=== PATIENT | female | born 1935 | race African-American/Black ===

== ENCOUNTER → 2017-07-13 | Outpatient (CLI) | payer MEDICARE, MEDICAID ==
[~2017-07-13] MED LIST: AMLO10TA2 PO; ASPI-183 PO; LISI10TA3 PO
[2017-07-13 11:30] LABS: AUTOMATED NEUTROPHIL # 4.1 TH/MM3 (1.8-7.7); BASOPHIL # 0.1 TH/MM3 (0-0.2); BASOPHIL % 1.1 % (0.0-2.0); EOSINOPHIL # 0.1 TH/MM3 (0-0.4); EOSINOPHIL % 1.9 % (0.0-4.0); HEMATOCRIT 39.5 % (35.0-46.0); HEMO FLAGS DIFF FINAL; LYMPH % 31.2 % (9.0-44.0); LYMPHOCYTE # 2.3 TH/MM3 (1.0-4.8); MEAN CELL VOLUME 91.3 FL (80.0-100.0); MEAN CORPUSCULAR HEMOGLOBIN 32.5 PG (27.0-34.0); MEAN CORPUSCULAR HGB CONC 35.6 % (32.0-36.0); MONO % 10.4 % (0.0-8.0); NEUT % 55.4 % (16.0-70.0); PLATELET COUNT 333 TH/MM3 (150-450); RED BLOOD COUNT 4.33 MIL/MM3 (4.00-5.30); RED CELL DISTRIBUTION WIDTH 13.8 % (11.6-17.2); WHITE BLOOD COUNT 7.4 TH/MM3 (4.0-11.0)
[2017-07-13 11:37] LABS: APTT (PATIENT) 24.1 SEC (24.3-30.1); PROTHROMBIN TIME - PATIENT 10.2 SEC (9.8-11.6)
[2017-07-13 11:51] LABS: ALT (GPT) 24 U/L (10-53); ANION GAP 6 MEQ/L (5-15); AST (GOT) 14 U/L (15-37); BICARBONATE 29.1 MEQ/L (21.0-32.0); BLOOD UREA NITROGEN 18 MG/DL (7-18); CHLORIDE 105 MEQ/L (98-107); GLOMERULAR FILTRATION RATE 68 ML/MIN (>89); GLUCOSE,FASTING 122 MG/DL (74-99); POTASSIUM 4.5 MEQ/L (3.5-5.1); SODIUM (NA) 140 MEQ/L (136-145)
[2017-07-13 11:54] LABS: ALKALINE PHOSPHATASE 167 U/L (45-117); TOTAL BILIRUBIN ADULT 0.4 MG/DL (0.2-1.0)
--- NOTE | 2017-07-15 13:21 | EKG ---
Date Performed: 07/13/2017 Time Performed: 10:22:00 PTAGE: 82 years EKG: Sinus rhythm Low QRS voltage in precordial leads Nonspecific T-wave abnormality NO PREVIOUS TRACING DOCTOR: Valente Borja Interpretating Date/Time 07/15/2017 13:21:32
== END ==
LOC: CPRE 09:59
PROVIDERS: ATTEND Obstetrics & Gynecology Gynecologic Oncology
DX: Z01.812 Encounter for preprocedural laboratory examination (principal); Z01.810 Encounter for preprocedural cardiovascular examination; C56.9 Malignant neoplasm of unspecified ovary
CPT/HCPCS: 36415; 80053; 85025; 85610; 85730; 86304; 93005

== ENCOUNTER 2017-07-26 07:50 | Inpatient (IN) | payer MEDICARE, OTHER ==
[~2017-07-26] VITALS: Ht 157.5 cm; Wt 68.9 kg
[2017-07-26] MEDS ORDERED: HEPARIN SODIUM - SQ 10,000 UNITS/ML VIAL ONE (08:58)
[2017-07-26] MEDS ORDERED: ceFAZolin INJ 1,000 MG VIAL ONE ×2 (08:58→17:17)
[2017-07-26] MEDS ORDERED: SODIUM CHLORIDE 0.9% INJ 100 ML ONE (08:59)
[2017-07-26] MEDS ORDERED: HEPARIN SODIUM - SQ 10,000 UNITS/ML VIAL SQ SCH (09:30)
[2017-07-26] MEDS ORDERED: CHLORHEXIDINE GLUCONATE 2 % 1 PACK (2 CLOTHS) TOPICAL PRN (09:45)
[2017-07-26] MEDS ORDERED: LACTATED RINGER'S 1000 ML IV PRN (09:45)
[2017-07-26] MEDS ORDERED: METOPROLOL TARTRATE 25 MG TAB PO PRN (09:45)
[2017-07-26] MEDS ORDERED: INSULIN HUMAN REGULAR 1,000 UNITS/10 ML VIAL SQ PRN (09:45)
[2017-07-26] MEDS ORDERED: ceFAZolin 1,000 MG/NS 100 ML IV SCH ×2 (09:45)
[2017-07-26] MEDS ORDERED: SODIUM CHLORID 0.9% 500 ML IV PRN (09:45)
[2017-07-26] MEDS ORDERED: POVIDONE IODINE 5% (ANTISEPSIS KIT) 4 APPLICATIONS EACH NARE PRN (09:45)
[2017-07-26] MEDS ORDERED: DEXAMETHASONE SOD PHOS 4 MG/ML VIAL IV ONE (12:00)
[2017-07-26] MEDS ORDERED: LABETALOL HCL 100 MG/20 ML VIAL IV ONE (12:00)
[2017-07-26] MEDS ORDERED: SODIUM CHLORIDE 0.9% 20 ML VIAL IV ONE (12:00)
[2017-07-26] MEDS ORDERED: ROCURONIUM INJ 50 MG/5 ML SYRINGE IV PUSH ONE (12:00)
[2017-07-26] MEDS ORDERED: ONDANSETRON HCL 4 MG/2 ML VIAL IV PUSH ONE (12:00)
[2017-07-26] MEDS ORDERED: VECURONIUM BROMIDE 20 MG VIAL IV ONE (12:00)
[2017-07-26] MEDS ORDERED: hydrALAZINE HCL 20 MG/ML VIAL IV ONE (12:00)
[2017-07-26] MEDS ORDERED: LIDOCAINE HCL 1% PF 5 ML SYRINGE OTHER ONE (12:00)
[2017-07-26] MEDS ORDERED: PROPOFOL 200 MG/20 ML AMP IV ONE (12:00)
[2017-07-26] MEDS ORDERED: LIDOCAINE 1%/EPINEPHrine 1:100,000 SOLN 50 ML VIAL ONE (13:43)
[2017-07-26] MEDS ORDERED: SUGAMMADEX SODIUM 200 MG/2 ML VIAL IV PUSH ONE (16:09)
[2017-07-26] MEDS ORDERED: oxyCODONE/ACETAMINOPHEN 5 MG/325 MG TAB PO PRN ×2 (17:30)
[2017-07-26] MEDS ORDERED: ONDANSETRON HCL 4 MG/2 ML VIAL IVP PRN (17:30)
[2017-07-26] MEDS ORDERED: LORazepam 0.5 MG TAB PO PRN (17:30)
[2017-07-26] MEDS ORDERED: SODIUM CHLORIDE 0.9% FLUSH 10 ML FLUSH IV FLUSH PRN (17:30)
[2017-07-26] MEDS ORDERED: DO NOT ADM ANY ANTICOAGULANT DRUGS PRN (17:47)
[2017-07-26] MEDS: D5-1/2 NS + KCL 20 MEQ INJ 1,000 ML IV SCH (18:15)
[2017-07-26 20:05] VITALS: BP 148/71; PULSE 98; RESP 18; TEMP 96.4; O2SAT 98
[2017-07-26] MEDS: KETOROLAC TROMETHAMINE 30 MG/ML (IVP) VIAL IVP SCH (20:57)
[2017-07-26] MEDS: SODIUM CHLORIDE 0.9% FLUSH 10 ML FLUSH IV FLUSH SCH (20:57)
[2017-07-26 22:22] VITALS: PULSE 100
[2017-07-27 00:55] VITALS: BP 164/81; PULSE 110; RESP 18; TEMP 99.4; O2SAT 99
[2017-07-27] MEDS: KETOROLAC TROMETHAMINE 30 MG/ML (IVP) VIAL IVP SCH ×2 (02:50→09:25)
[2017-07-27 05:43] VITALS: BP 149/75; PULSE 97; RESP 18; TEMP 98.8; O2SAT 99
[2017-07-27] MEDS: D5-1/2 NS + KCL 20 MEQ INJ 1,000 ML IV SCH (05:49)
[2017-07-27 06:22] LABS: AUTOMATED NEUTROPHIL # 12.2 TH/MM3 (1.8-7.7); BASOPHIL % 0.1 % (0.0-2.0); HEMATOCRIT 39.1 % (35.0-46.0); LYMPH % 8.4 % (9.0-44.0); LYMPHOCYTE # 1.2 TH/MM3 (1.0-4.8); MEAN CELL VOLUME 90.4 FL (80.0-100.0); MEAN CORPUSCULAR HEMOGLOBIN 30.1 PG (27.0-34.0); MEAN CORPUSCULAR HGB CONC 33.3 % (32.0-36.0); MEAN PLATELET VOLUME 8.1 FL (7.0-11.0); MONO % 7.4 % (0.0-8.0); MONOCYTE # 1.1 TH/MM3 (0-0.9); NEUT % 84.1 % (16.0-70.0); PLATELET COUNT 311 TH/MM3 (150-450); RED BLOOD COUNT 4.32 MIL/MM3 (4.00-5.30); RED CELL DISTRIBUTION WIDTH 13.5 % (11.6-17.2); WHITE BLOOD COUNT 14.5 TH/MM3 (4.0-11.0)
[2017-07-27] MEDS ORDERED: OXYC1TAB63 PO (06:51)
[2017-07-27 06:54] LABS: BICARBONATE 24.9 MEQ/L (21.0-32.0); CALCIUM 8.8 MG/DL (8.5-10.1); CREATININE 1.08 MG/DL (0.50-1.00)
[2017-07-27] MEDS ORDERED: LISINOPRIL 10 MG TAB PO SCH (09:00)
[2017-07-27 09:20] VITALS: BP 167/77; PULSE 90; RESP 18; TEMP 98.4; O2SAT 98
[2017-07-27] MEDS: SODIUM CHLORIDE 0.9% FLUSH 10 ML FLUSH IV FLUSH SCH (09:25)
--- NOTE | 2017-07-28 23:18 | MP ---
cc: JUNI HUFFMAN MD,FANTA JOSHIEDNA DATE OF SURGERY 07/26/17 PREOPERATIVE DIAGNOSIS Uterine papillary serous carcinoma. POSTOPERATIVE DIAGNOSIS 1. Uterine papillary serous carcinoma 2. Pelvic adhesions. PROCEDURE Robotic-assisted laparoscopic hysterectomy, bilateral salpingo-oophorectomy, bilateral pelvic lymph node dissection with biopsies, omentectomy, peritoneal biopsies, lysis of adhesions. SURGEON Emily Nunn MD STILL OPERATOR GIN [place] tender assistant ANESTHESIA General endotracheal anesthesia ESTIMATED BLOOD LOSS 100 mL IV FLUIDS 1100 mL URINE OUTPUT 150 mL HISTORY An 82-year-old female abnormal Pap smear, postmenopausal bleeding. Further evaluation showed a uterine papillary serous carcinoma. She was counseled regarding these findings and was in favor of surgical management. She is seen in the preop holding area with a couple of her daughters present where we again reviewed the findings and the recommended plan of care. Questions were asked and answered. She expressed good understanding and wanted to move forward with surgery. FINDINGS The uterus sounded to 9 cm. It was slightly prominent. The tubes and ovaries grossly appeared normal. The right fallopian tube had adhesions and was stuck to the right pelvic sidewall. There are multiple bands of filmy adhesions in the cul-de-sac and against the left pelvic sidewall. In the peritoneum, the peritoneal surfaces were smooth. The liver and diaphragm edges were smooth. The omentum grossly appeared normal. Large and small bowel and adjacent mesentery appeared normal. There was some diverticulum without diverticulitis. In the retroperitoneum, there were no visibly or palpably enlarged para-aortic or pericaval lymph nodes. There was a single prominent left external iliac lymph node and there were two prominent obturator nodes in the right pelvis. The uterus once removed showed the tumor to be approximately 2 to 2.5 cm in diameter. It invaded just under a 50% of the myometrium with an estimation of 14 mm invasion into a myometrium of 31 mm. PROCEDURE IN DETAIL She was taken to the operating room and placed in dorsal lithotomy position after general endotracheal anesthesia was administered. Time-out was undertaken. She was identified by sight recognition and hospital ID bracelet and the proposed procedure was reviewed and confirmed. She was carefully positioned in padded Ron stirrups. Her arms were padded and secured to the sides. She was further secured to the operating table with egg crate padding and tape in across chest over the shoulder fashion. She was inspected. All sites noted to be properly aligned with no malalignments or pressure points. 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 The cervix dilated and a standard V-Care manipulator was inserted and secured in usual fashion. Hall catheter placed in the bladder. She was returned to low lithotomy position. Change of sterile gloves was undertaken. We completed draping in anticipation of laparoscopy and confirmed that an orogastric tube was in the stomach on suction. With manual elevation of the abdominal wall and direct laparoscopic visualization, 5 mm cannula introduced into the left upper quadrant. Carbon dioxide gas was insufflated, a 10-12 mm cannula placed in midline above the umbilicus, 8 mm cannula placed in the right upper quadrant, left lateral quadrant and the original five exchanged for an 8-mm cannula. Peritoneal washings were obtained for cytology. She was placed in Trendelenburg position. The anatomy was surveyed with findings as described above. The small bowel was folded back on its mesenteric root and three Ray-Raya sponges were placed around the root of the small bowel mesentery. Robotic system brought into the operative field, attached in usual fashion. Monopolar scissors, fenestrated bipolar forceps and Prograsp manipulators were placed in arms #1, 2 and 3 respectively and I took my place at the surgeon's console. Right round ligament isolated, cauterized, transected. The anterior and posterior leafs of the broad ligament were opened. The right ureter was identified. The right infundibulopelvic ligament was isolated, intervening peritoneum was opened. The infundibulopelvic ligament was isolated to the level of the pelvic brim where it was cauterized and transected. Posterior peritoneum opened along the right side of uterus and cervix and right vesicouterine peritoneum dissected off the lower uterine segment and cervix. The right uterine vessels were skeletonized. The right uterine vessels were cauterized and transected as were the cardinal, paracervical and uterosacral ligaments. Attention was directed to the right pelvic sidewall where the paravesical, pararectal and obturator spaces were developed. Visual and palpable inspection of the lymphatic basis revealed two prominent lymph nodes, each at least 1 centimeter in the obturator space ventral to the obturator nerve. There were no other prominent or identifiable lymph nodes. Bipolar cautery, sharp dissection were used to circumferentially dissect these lymph nodes free. Small bleeders rendered hemostatic with bipolar cautery and each of the lymph nodes was removed and placed in the right pericolic gutter for later retrieval. Attention was directed toward the left side, left round ligament was isolated, cauterized transected. The anterior and posterior leafs of the broad ligament were opened. Left ureter was identified. The left infundibulopelvic ligament was isolated. Adhesions were taken down to mobilize the colon and free the adhesions from the posterior cul-de-sac. A number of these adhesions were removed and collected, placed in the right pericolic gutter as peritoneal biopsies and random peritoneal biopsies were taken from the pelvis and abdomen and collectively placed in the right pericolic gutter for later retrieval. After lysing adhesions and obtaining peritoneal biopsies, the infundibulopelvic ligament was isolated. The intervening peritoneum was opened. The infundibulopelvic ligament was isolated to the level of the pelvic brim where it was cauterized and transected. Posterior peritoneum opened along the left side of the uterus and cervix and the left vesicouterine peritoneum was dissected off the lower uterine segment and cervix. The left uterine vessels were isolated, cauterized and transected as were the cardinal, paracervical and uterosacral ligaments. Attention was directed toward the left pelvic sidewall where the paravesical and pararectal and obturator spaces were opened. Visual and manual inspection did not reveal any prominent lymph nodes with the exception being a single external iliac lymph node approximately 1 cm in diameter near the circumflex iliac vein. This was isolated with bipolar cautery and sharp dissection was used to remove this lymph node and place it in the right pericolic gutter. Reinspection did not reveal any enlarged lymph nodes in the obturator space, although there was a subtle lymph node above the obturator nerve that was also isolated and removed with bipolar cautery and sharp dissection and added to the lymph node biopsies in the right. Attention was directed toward the abdomen. The distal edge of the infracolic omentum was grasped and pulled toward the pelvis. Inspection showed the omentum to grossly appeared normal, but a large portion of the infracolic omentum was resected with nonvascular attachments being isolated, taken down with sharp dissection, vascular attachments and vascular tissue isolated, rendered hemostatic with bipolar cautery and then cut in a stepwise fashion following the curve of the transverse colon removing a large tour sales representative portion of the infracolic omentum which was placed in the left pericolic gutter for later retrieval. Attention was redirected to the pelvis where a colpotomy was performed the cervix from the upper vagina. The specimen was withdrawn transvaginally which included uterus, cervix, tubes and ovaries and a pneumo-occluder balloon was placed in the vagina to maintain pneumoperitoneum. Sponge stick was introduced into the vagina and collectively all of the peritoneal biopsies were placed in a sponge stick and removed transvaginally. These were sent for permanent histopathologic analysis. Next, the omentum was grasped with a ring forcep been delivered transvaginally a full of the graft to the new along the next, each of the three Ray-Raya sponges that had been placed in the peritoneal cavity were removed transvaginally using ring forceps. They were grasped individually and removed. Each were inspected and noted to be removed in their entirety. The only specimen that remained were the lymph nodes in the right pericolic gutter. Instruments 1 and 3 exchanged for needle drivers as a 0 Vicryl suture was introduced. The vaginal cuff was closed starting at the left apex, full-thickness closure incorporating the posterior peritoneum edge of the uterosacral ligament tied via instrument tie. Full-thickness closure was carried out with countertraction on suture running across the vaginal cuff continuing the closure through the contralateral corner where it was similarly fixed, secured, tied. The needle was cut and removed. The pelvis was thoroughly irrigated. Small bleeders rendered hemostatic with bipolar cautery. Neurovascular structures were intact. Good hemostasis and good peristalsis of ureters bilaterally. It was felt that all reasonable surgical objectives had been completed. Preliminary counts were correct. The robotic instruments were removed. The robotic system was disengaged from the operative field and I reentered the bedside under sterile condition. Each of the lymph node specimens were grasped with a long grasper and removed through the 12-mm cannula laparoscopically and collected together as pelvic lymph nodes. Visual inspection confirmed no remaining foreign objects in the peritoneal cavity. Good hemostasis and attention was directed toward closing. 12 mm fascial defect was closed with 0 Vicryl sutures using a fascial closure device. These were tied securely which rendered the fascia completely airtight and hemostatic. The remaining cannulas were withdrawn. Carbon dioxide gas was removed from the peritoneal cavity. 3-0 Vicryl subcutaneous, 3-0 Vicryl subcuticular and Steri-Strips were used to close these incisions. She was returned to dorsal lithotomy position. Exam confirmed the vaginal cuff was well supported, hemostatic. There were no vaginal lacerations. There were no remaining foreign objects in the vagina. Final counts were correct. Superficial irritation at the introitus was rendered hemostatic with topical silver nitrate. She was returned to dorsal supine position and was pending reversal of anesthesia when I left the operating room to precede her to the Post Anesthesia Care Unit. MD YOUSIF Pedraza/ /6:57 AM /10:20 PM
--- NOTE | 2017-07-31 13:36 | MD ---
cc: FANTA HANCOCK MD, JULIE D. MD [facility], [facility] MD ADMISSION DATE: 07/26/2017 DISCHARGE DATE: 07/27/2017 PROCEDURE 07/27/2017. Robotic-assisted laparoscopic hysterectomy bilateral salpingo-oophorectomy, bilateral pelvic lymph node biopsies, omentectomy, peritoneal biopsies, lysis of adhesions. DIAGNOSIS Uterine papillary serous carcinoma. HOSPITAL COURSE She did well in the early postoperative course. She remained hemodynamically stable tolerating oral intake. Hall catheter removed pending voiding, in's and out's 2300/3100. LABORATORY DATA H&H this morning 13 and 39.1, platelet count 311. Electrolytes are pending. PHYSICAL EXAMINATION She is afebrile, pulse ranging from 98 to 110, respirations 18-20, blood pressure 148 to 164/71 to 81. O2 saturations greater than equal to 98%. EXAMINATION She is alert and oriented x3, in no acute distress. Lungs: Clear, mild basilar rales. Cardiovascular: Regular rate and rhythm. Incisions clean and dry. SENIOR CONSTRUCTION MANAGER: No bleeding. Extremities: Nontender. ASSESSMENT Postoperative day #1, preliminary findings, preliminary pathology discussed and reviewed. Activities, restrictions reviewed. Questions were asked and answered. She expressed good understanding. PLAN: Anticipate discharge to home. She is to resume her prior medications. She will have a prescription for Percocet for pain. She is to call our office to ensure she has a follow up in approximately two to three weeks, or to contact our office should she have any questions or problems. MD YOUSIF Pedraza/MIKEY /6:53 AM /1:12 PM
== END 2017-07-27 12:08 | disposition home or self-care (01) | DRG 741 ==
LOC: HSDC 07:50 → HSDI 17:25 → HCIN 19:51
PROVIDERS: ADMIT Obstetrics & Gynecology Gynecologic Oncology; ATTEND Obstetrics & Gynecology Gynecologic Oncology
PROC: 0UT2FZZ Resection of Bilateral Ovaries, Via Natural or Artificial Opening With Percutaneous Endoscopic Assistance (ICD-10-PCS; 2017-07-26)
PROC: 0UT7FZZ Resection of Bilateral Fallopian Tubes, Via Natural or Artificial Opening With Percutaneous Endoscopic Assistance (ICD-10-PCS; 2017-07-26)
PROC: 0DBU4ZZ Excision of Omentum, Percutaneous Endoscopic Approach (ICD-10-PCS; 2017-07-26)
PROC: 8E0W4CZ Robotic Assisted Procedure of Trunk Region, Percutaneous Endoscopic Approach (ICD-10-PCS; 2017-07-26)
PROC: 0DBW4ZX Excision of Peritoneum, Percutaneous Endoscopic Approach, Diagnostic (ICD-10-PCS; 2017-07-26)
PROC: 3E1M38X Irrigation of Peritoneal Cavity using Irrigating Substance, Percutaneous Approach, Diagnostic (ICD-10-PCS; 2017-07-26)
PROC: 0UTC8ZZ Resection of Cervix, Via Natural or Artificial Opening Endoscopic (ICD-10-PCS; 2017-07-26)
PROC: 07BC4ZX Excision of Pelvis Lymphatic, Percutaneous Endoscopic Approach, Diagnostic (ICD-10-PCS; 2017-07-26)
PROC: 0UT9FZZ Resection of Uterus, Via Natural or Artificial Opening With Percutaneous Endoscopic Assistance (ICD-10-PCS; principal; 2017-07-26 13:50)
DX: C55 Malignant neoplasm of uterus, part unspecified (principal); E11.9 Type 2 diabetes mellitus without complications; I10 Essential (primary) hypertension; N73.6 Female pelvic peritoneal adhesions (postinfective); N95.0 Postmenopausal bleeding; E78.00 Pure hypercholesterolemia, unspecified; Z79.84 Long term (current) use of oral hypoglycemic drugs
CPT/HCPCS: 80048; 85025; 86850; 86900; 86901; 88112; 88305; 88307; 88331; 88342; 94150; J0360; J0690; J1100; J1644; J1885; J2405; J3480; J7120